=== PATIENT | female | born 1980 | race American Indian/Alaskan Native ===

== ENCOUNTER 2019-03-21 11:50 | Emergency (ER) | payer MEDICARE ==
[2019-03-21 12:08] VITALS: BP 135/67
--- NOTE | 2019-03-21 12:12 | Emergency Department Report ---
Chief Complaint: Dental/Oral Stated Complaint: TOOTHACHE Time Seen by Provider: 03/21/19 12:06 - HPI History of Present Illness: This is a 38 y.o. F. that presents to the ER with a toothache on right lower side since yesterday. States she always have intermittent pain with this tooth but worsening over the past 2 days. Patient states her insurance don't kick in until May for dental and unable to follow up a dentist at this time. Reports pain is worse with eating. She denies facial swelling, fever, chills, headache, nausea, vomiting, chest pain or SOB. LMP 03/15/2019 No PMH - ROS Review of Systems: HEENT: dental pain - Exam Vital Signs: Vital Signs 03/21/19 12:06 Temperature 97.9 F Pulse Rate 87 Respiratory 18 Rate Blood Pressure 135/67 [Right] O2 Sat by Pulse 99 Oximetry Physical Exam: GENERAL APPEARANCE: The patient is a 38-year-old well-developed, well-nourished female in no acute distress. HEENT: Oropharynx is clear. Black dental caries on lateral side of #29 with gingival swelling and tenderness. Tympanic membranes are clear. NECK: Supple. Trachea is midline. No evidence of thyroid enlargement. No lymphad enopathy or tenderness. CHEST: Symmetric. Nontender to palpation. LUNGS: Breath sounds are equal and clear bilaterally. No wheezes, rhonchi, or rales. HEART: Regular rate and rhythm with normal S1 and S2. No murmurs, gallops, or rubs. EXTREMITIES: No cyanosis, clubbing, or edema. NEUROLOGIC: No focal sensory or motor deficits are noted. Gait is normal. Cranial nerves II through XII are intact. Deep tendon reflexes are intact. PSYCHIATRIC: The patient is awake, alert, and oriented x3. Recent and remote memory is intact. Appropriate mood and affect. SKIN: Warm, dry, and well perfused. Good turgor. No lesions, nodules or rashes are noted. No onychomycosis. MSE screening note: Focused history and physical exam performed. Due to findings the following was ordered: ED Medical Decision Making - Medical Decision Making This patient was seen by this provider. Vitals are stable and patient is in no acute distress. There is a dental caries at #29 with gingival swelling. Start analgesics and amoxicillin. Referral to emergency dental clinics for continued care. Patient discharged home stable. ED Disposition for MSE Clinical Impression: Dental caries, Toothache Disposition: TO HOME OR SELFCARE Is pt being admited?: No Does the pt Need Aspirin: No Condition: Stable Instructions: Dental Caries (ED), Toothache (ED) Additional Instructions: Take pain medication every 6-8 hours as needed for pain. Follow up with Dentist from the referrals list below. Prescriptions: Naproxen [Naprosyn] 500 mg PO BID PRN #20 tablet PRN Reason: Pain, Moderate (4-6) Amoxicillin [Trimox CAP] 500 mg PO BID #14 capsule traMADol [Ultram 50 MG tab] 50 mg PO Q6HR PRN #12 tablet PRN Reason: Pain Referrals: KANNAN CHILDRESS MD [Primary Care Provider] - 3-5 Days [facility] [Outside] - 3-5 Days [facility] [Outside] - 3-5 Days [facility] [Outside] - 3-5 Days Time of Disposition: 12:31
== END 2019-03-21 12:38 | disposition home or self-care (01) ==
LOC: ED 11:50
DX: K02.9 Dental caries, unspecified (principal)
CPT/HCPCS: 99282